=== PATIENT | male | born 1950 | race Caucasian/White ===

== ENCOUNTER 2023-03-24 13:08 | Outpatient (CLI) | payer MEDICARE, SELFPAY ==
--- NOTE | 2023-04-01 14:05 | WPDSLEEPSTUD ---
Sleep Study Date of Study: 03/24/23 Ordering Provider: Merle Nava, TOLL RELIEF OPERATOR Interpreting Physician: Crystal Patterson MD Sleep Study Type: Split Polysomnogram Height: 1.73 m Weight: 104.326 kg Body Mass Index: 34.9 Neck Circumference (inches): 17 [place]: 11 Reason for Sleep Study Paroxysmal atrial fibrillation, hypersomnolence Sleep History Johnnie Dominguez is a 72-year-old man with history of paroxysmal atrial fibrillation who presents for a split night sleep study, referred by regional environmental manager. He never awakens from sleep short of breath. He rarely at night with heartburn, belching or cough.??He never snores, rarely snores loudly enough that others complain. He rarely has trouble sleeping when he has a cold. He never wakes up gasping for breath during the night. He rarely has breathing problems at night. He never sweats excessively at night. He rarely notices his heart pounding or beating irregularly during the night. He occasionally falls asleep during the day. He occasionally falls asleep involuntarily, rarely falls asleep while driving. He never experiences loss of muscle tone with strong emotion. He never feels paralyzed on waking or falling asleep. He never experiences vivid dreams upon waking or falling asleep. He never feels afraid of going to sleep. He rarely has nightmares. He occasional recalls his dreams. He rarely has thoughts racing through his mind. He rarely feels sad or depressed. He occasionally feels anxiety or worry about things. He rarely notices parts of his body jerk. He occasionally kicks during the night. He rarely feels crawling or aching feelings in his legs. He rarely feels leg pain at night. He never grinds his teeth and never has morning jaw pain. He rarely feels bothered by pain during the day and is never awakened by pain during the night. He rarely wakes up feeling stiff, sore, or achy in the morning, never with pain in his neck, spine, or joints. He has insomnia. Normal bedtime is around 11:00 p.m. to 12 midnight, usually falling asleep 30 minute. He typically gets about 4-5 hours of sleep per night. His wake up time is 3:30 a.m. to 4:00 a.m. he keeps the same schedule on weekends. he wakes 3 times typically during the night to go to the bathroom or watch television. He is able to return to sleep within 5-15 minutes but sometimes this may take between 1 and 2 hours to fall asleep. His awakenings occur in the middle of the night. he takes naps in the afternoon or evening at times. He may feel refreshed after a 10-15 minute nap. He is usually drowsy for 3 hours after waking. Habits:??Tobacco: Never smoker Caffeine: 1-2 glasses per day. Alcohol: 1 beverage per week. Recreational substances: none [facility] Past Medical History Medical History (Updated 04/01/23 @ 14:51 by Crystal Patterson MD) Atrial fibrillation Benign prostatic hyperplasia Hypertension Medications Medications: acetaminophen 325 mg, 2 tablets q.6 hours p.r.n. pain apixaban 5 mg twice a day cholecalciferol vitamin D3 2000 units daily Avodart 0.5 mg daily furosemide 20 mg daily as needed for lower extremity swelling ibuprofen 600 mg t.i.d. p.r.n. metoprolol XL 25 mg daily tadalafil 20 mg daily as needed for erectile dysfunction Sleep Procedure This test was performed using the [employer] multiple channel system including EOG, EEG, submental EMG, EKG, nasal and oral airflow using thermistors and nasal pressure sensors, chest and abdominal belts for body position data, and pulse oximetry. Video monitoring was also performed. The study was scored using CMS guidelines. After the baseline portion the patient met criteria for a titration with an AHI of 30 and desaturation to 89%. He used a medium AirFit F20 fullface mask with heated humidity, initial pressure was 5 cm and this was titrated up to 10 cm. Central apneas were noted at 6 cm and higher pressures. The patient was transitione
[2023-04-01 15:41] VITALS: BMI 34.9
== END 2023-03-25 07:48 | disposition home or self-care (01) ==
LOC: ANHCSM 13:09
PROVIDERS: PCP Internal Medicine; Visit Provider Nurse Practitioner Adult Health
DX: Z91.89 Other specified personal risk factors, not elsewhere classified (principal); G47.9 Sleep disorder, unspecified; G47.33 Obstructive sleep apnea (adult) (pediatric)
CPT/HCPCS: 95811

== ENCOUNTER 2023-05-02 08:59 | Outpatient (CLI) | payer MEDICARE, SELFPAY ==
--- NOTE | 2023-05-12 12:18 | WPDSLEEPSTUD ---
Sleep Study Date of Study: 05/02/23 Ordering Provider: Merle Nava, BLOCK CHOPPER HAND Interpreting Physician: Crystal Patterson MD Sleep Study Type: ASV Height: 1.73 m Weight: 99.79 kg Body Mass Index: 33.4 Neck Circumference (inches): 17 [place]: 11 Reason for Sleep Study Initial complaint was included hypersomnolence in the setting of paroxysmal atrial fibrillation * 03/24/2023 - split night sleep study- severe obstructive sleep apnea, the AHI is 30, minimum saturation is 89% with loud snoring, no optimal pressure identified, with treatment emergent apneas at most all levels, CPAP 5-11 cm and BiPAP even with a backup rate of 10.; AHI ranged between 25 and 100. He returns for an ASV titration. His echo shows an EF of 60%, normal. Sleep History Johnnie Dominguez is a 73-year-old man with history of? paroxysmal atrial fibrillation who presents for a split night sleep study,? referred by ladle car operator. He never awakens from sleep short of breath. He rarely at night with heartburn, belching or cough.??He never snores, rarely snores loudly enough that others complain. He? rarely has trouble sleeping when he has a cold. He? never wakes up gasping for breath during the night. He? rarely has breathing problems at night. He never sweats excessively at night. He? rarely notices his heart pounding or beating irregularly during the night. He? occasionally falls asleep during the day. He? occasionally falls asleep involuntarily, rarely falls asleep while driving. He? never experiences loss of muscle tone with strong emotion. He? never feels paralyzed on waking or falling asleep. He? never experiences vivid dreams upon waking or falling asleep. He never feels afraid of going to sleep. He? rarely? has nightmares. He? occasional recalls his dreams. He? rarely has thoughts racing through his mind. He? rarely feels sad or depressed. He? occasionally feels anxiety or worry about things. He? rarely notices parts of his body jerk. He? occasionally kicks during the night. He rarely feels crawling or aching feelings in his legs. He? rarely feels leg pain at night. He? never grinds his teeth and never has morning jaw pain. He? rarely feels bothered by pain during the day and never is awakened by pain during the night. He rarely wakes up feeling stiff, sore, or achy in the morning, never with pain in his neck, spine, or joints. ? He has insomnia. Normal bedtime is around? 11:00 p.m. to 12 midnight, usually falling asleep? 30 minute. He typically gets about? 4-5 hours of sleep per night. His wake up time is? 3:30 a.m. to 4:00 a.m. he keeps the same schedule on weekends.? he wakes 3 times typically during the night to go to the bathroom or watch television.? He is able to return to sleep within 5-15 minutes but sometimes this may take between 1 and 2 hours to fall asleep.? His awakenings occur in the middle of the night. ? he takes naps in the afternoon or evening at times.? He may feel refreshed after a 10-15 minute nap.? He is usually drowsy for 3 hours after waking. Habits:??Tobacco:? Never smoker? ? ? Caffeine: 1-2 glasses per day. ? Alcohol: 1 beverage per week. ? ? Recreational substances: none [facility] Past Medical History Medical History Atrial fibrillation Benign prostatic hyperplasia Cancer Colon polyps Hodgkins lymphoma Hypertension Stomach ulcer Surgical History Surgical History H/O vasectomy Status post repair of arteriovenous fistula Family History Family History Father Cerebrovascular accident Acute myocardial infarction Mother COPD (chronic obstructive pulmonary disease) Arthritis Sibling Diabetes mellitus Cancer Social History Social History Smoking status: Never smoker Alcohol intake: current Alcohol use details: 1 or 2 coupl
[2023-05-12 12:45] VITALS: BMI 33.4
== END 2023-05-03 07:48 | disposition home or self-care (01) ==
LOC: ANHCSM 09:04
PROVIDERS: PCP Internal Medicine; Visit Provider Nurse Practitioner Adult Health
DX: G47.31 Primary central sleep apnea (principal); G47.33 Obstructive sleep apnea (adult) (pediatric); I48.0 Paroxysmal atrial fibrillation; Z79.01 Long term (current) use of anticoagulants; I10 Essential (primary) hypertension; G47.00 Insomnia, unspecified; N40.0 Benign prostatic hyperplasia without lower urinary tract symptoms; Z85.72 Personal history of non-Hodgkin lymphomas; Z85.71 Personal history of Hodgkin lymphoma
CPT/HCPCS: 95811

== ENCOUNTER 2024-05-13 10:32 | Outpatient (CLI) | payer MEDICARE, SELFPAY ==
--- NOTE | ~2024-05-13 | XR_ITS ---
EXAMINATION: XR chest 2V 05/13/2024 10:51 INDICATION: Long-term amiodarone use. PROCEDURE: 2 view chest COMPARISON: 05/26/2011 FINDINGS: The lungs are clear. The cardiomediastinal silhouette is within normal limits. There are no pleural effusions. There is no pneumothorax suspected. IMPRESSION: 1: NO ACUTE CARDIOPULMONARY DISEASE. Reviewed, dictated and finalized at location B.
== END 2024-05-13 10:33 | disposition home or self-care (01) ==
PROVIDERS: PCP Internal Medicine; Visit Provider Nurse Practitioner Adult Health
DX: Z79.899 Other long term (current) drug therapy (principal)
CPT/HCPCS: 71046